=== PATIENT | male | born 1955 | race Caucasian/White ===

== ENCOUNTER 2018-05-14 17:46 | Outpatient (CLI) | payer BC ==
--- NOTE | 2018-05-14 21:02 | RAD ---
RIGHT FOOT THREE VIEWS: 05/14/18 No fracture was seen. No periosteal reaction is present. There was perhaps a little bony density at t he base of the fifth metacarpal where some of the peroneus tendons insert that could signify an old i njury or tendonitis here. There were no acute changes. There is ossification at the insertion of the Achilles tendon. IMPRESSION: No acute finding. POS: HOME
== END 2018-05-14 17:47 | disposition home or self-care (01) ==
LOC: BURRAD 17:46
PROVIDERS: ATTEND Family Medicine
DX: M79.671 Pain in right foot (principal)

== ENCOUNTER → 2019-02-17 | Emergency (ER) | payer BC, OTHER ==
[~2019-02-17] MED LIST: Adacel (T-DAP) 0.5 ML SYRINGE ONE; Tetracaine 0.5% OPHTH SOLN/PF 4 ML BOT ONE
== END ==
LOC: BURERS 09:52
DX: S61.411A Laceration without foreign body of right hand, initial encounter (principal); I10 Essential (primary) hypertension; W20.8XXA Other cause of strike by thrown, projected or falling object, initial encounter
CPT/HCPCS: 12002; 90471; 90715